=== PATIENT | female | born 1965 | race Caucasian/White ===

== ENCOUNTER 2017-09-22 08:02 | Outpatient (CLI) | payer MEDICARE ==
[~2017-09-22] VITALS: Ht 157.5 cm; Wt 83.2 kg
--- NOTE | ~2017-09-22 | HEMODYNAMI ---
PATIENT:BYRON JARAMILLO MEDICAL RECORD: [id number] : 63 LOCATION:DCATHY ADMISSION DATE: 09/22/17 Generatedon:09/22/201711:01 Patient name: BYRON JARAMILLO Patient #: [id number] S SN: : 1965 Date of study: 09/22/2017 Page: Of Hemodynamic Procedure Report Patient Data Patient Demographics Procedure consent was obtained First Name: BYRON Gender: Female Last Name: CLINT : 1965 Middle Initial: EDI Age: 51 year(s) Patient #: [id number] Race: Unknown Additional ID: [id number] Contact details Address: [facility] [place] State: [place] City: [place] Zip code: [address] Admission Admission Data Admission Date: 09/22/2017 Admission Time: 8:02 Lab Results Lab Result Date: 09/22/2017 Lab Result Time: 0:00 Biochemistry Name Units Result Min Max BUN mg/dl 10 --(-*--)-- 7 18 Creatinine mg/dl 0.7 --(*---)-- 0.6 1.3 CBC Name Units Result Min Max Hemoglobin g/dl 12.6 -*(----)-- 13.5 17.5 Procedure Procedure Types Cath Procedure Diagnostic Procedure [facility] w/Coronaries Miscellaneous Procedures Moderate Sedation up to 15 minutes Procedure Description Procedure Date Procedure Date: 09/22/2017 Procedure Start Time: 10:48 Procedure End Time: 11:00 Procedure Staff Name Function Vimal Rogers MD Performing Physician Colt Marino RT Monitor Faustina Stokes RT Scrub Andrew Saldana RN Nurse Procedure Data Cath Procedure Fluoroscopy Diagnostic fluoroscopy Total fluoroscopy Time: 2.7 time: 2.7 min min Diagnostic fluoroscopy Total fluoroscopy dose: 440 dose: 440 mGy mGy Contrast Material Contrast Material Type Amount (ml) Isovue 300 39 Entry Location Entry Primary Successful Side Size Upsize Upsize Entry Closure Rodríguez ccessful Closure Location (Fr) 1 (Fr) 2 (Fr) Remarks Device Remarks Radial Right 6 Fr Mechanical artery Short Compression Estimated blood loss: 10 ml Diagnostic catheters Device Type Used For End Catheter Placement DIAGNOSTIC [place] 110cm 5 Procedure Fr catheter ([id number]) Procedure Complications No complications Procedure Medications Medication Administration Route Dosage Oxygen NC 2 l/min Lidocaine 2% added to field 20 Heparin Flush Bag added to field 2 bags (1000units/500ml NS) 0.9% NaCl I.V. 100 ml/hr Radial Cocktail added to field 1 syringe (Verapomil 2mg/Nitro 400mcg/Heparin 1500units) Versed I.V. 1 mg Fentanyl I.V. 50 mcg Versed I.V. 1 mg Fentanyl I.V. 50 mcg 0.9% NaCl I.V. bolus 250 ml Versed I.V. 1 mg Fentanyl I.V. 50 mcg Hemodynamics Rest HGB: 12.6 (g/dl) Heart Rate: 70 (bpm) Pressure Samples Time Site Value (mmHg) Purpose Heart Use Rate(bpm) 10:53 AO 75/50(60) Snapshot 61 Snapshots Pre Cath Intra NCS Post Cath Vital Signs Time Heart Resp SPO2 etCO2 NIBP Rhythm Pain Sedation Rate (ipm) (%) (mmHg) (mmHg) Status Level (bpm) 10:28:08 70 22 94 33.1 82/60(71) NSR 0 (11) 10(A) , No pain 10:32:44 70 20 94 33.9 88/65(76) NSR 0 (11) 10(A) , No pain 10:37:21 70 18 94 32.4 95/62(79) NSR 0 (11) 10(A) , No pain 10:41:59 69 18 95 32.4 88/62(74) NSR 0 (11) 10(A) , No pain 10:46:36 65 18 94 33.1 90/56(72) NSR 0 (11) 10(A) , No pain 10:51:14 70 20 94 30.1 79/47(63) NSR 0 (11) 9(A) , No pain 10:55:51 63 18 95 36.2 86/49(69) NSR 0 (11) 9(A) , No pain 10:58:50 62 17 94 34.6 88/56(74) NSR 0 (11) 10(A) , No pain Medications Time Medication Route Dose Verified Delivered Reason Notes Effectiveness by by 10:26:40 Oxygen NC 2 l/min Vimal Buffie used for Ken Saldana RN procedure 10:26:47 Lidocaine 2% added 20ml Vimal Vimal for local to vial Ken Rogers MD anesthetic field 10:26:54 Heparin Flush added 2 bags Vimal Celis used for Bag to Ken Rogers MD procedure (1000units/500ml field NS) 10:27:04 0.9% NaCl I.V. 100 Vimal Buffie Per ml/hr Ken Saldana RN physician 10:46:00 Versed I.V. 1 mg Vimal Buffie for sedation Ken Saldana RN 10:46:06 Fentanyl I.V. 50 mcg Vimal Buffie for sedation Ken Saldana RN 10:49:14 Versed I.V. 1 mg Vimal Buffie for sedation Ken Saldana RN 10:49:17 Fentanyl I.V. 50 mcg Vimal Reganie for sedation Ken Saldana RN 10:50:06 Radial Cocktail added 1 Vimal Vimal for (Verapomil to syringe Ken Rogers MD vasodilation 2mg/Nitro field 400mcg/Heparin 1500units) 10:53:42 0.9% NaCl I.V. 250 ml Vimal Buffie Per bolus Ken Saldana RN physician 10:53:47 Versed I.V. 1 mg Vimal Buffie for sedation Ken Saldana RN 10:53:51 Fentanyl I.V. 50 mcg Vimal Reganie for sedation Ken Saldana RN Procedure Log Time Note 9:54:51 Time tracking: Regular hours 9:54:55 Plan of Care:Hemodynamics will remain stable., Cardiac rhythm will remain stable., Comfort level will be maintained., Respiratory function will remain adequate., Patient/ family verbilizes understanding of procedure., Procedure tolerated without complication., Recovers from procedure without complications.. 9:55:27 Colt SMITH(R) sent for patient. Start room use. 9:57:06 Lab Result : Creatinine 0.7 mg/dl 9:57:06 Lab Result : BUN 10 mg/dl 9:57:06 Lab Result : Hemoglobin 12.6 g/dl 10:12:56 Patient received from Pre/Post Procedure Room to CCL 1 Alert and oriented. Tansferred to table in Supine position. 10:12:58 Warm blankets applied, and filomena hugger turned on for patient comfort. 10:12:58 Correct patient and procedure confirmed by team. 10:13:02 Signed procedure consent form obtained from patient. 10:13:03 ECG and BP/O2 sat monitors applied to patient. 10:26:40 Oxygen 2 l/min NC was administered by Andrew Saldana RN; used for procedure; 10:26:47 Lidocaine 2% 20ml vial added to field was administered by Vimal Rogers MD; for local anesthetic; 10:26:54 Heparin Flush Bag (1000units/500ml NS) 2 bags added to field was administered by Vimal Rogers MD; used for procedure; 10:27:04 0.9% NaCl 100 ml/hr I.V. was administered by Andrew Saldana RN; Per physician; 10:27:07 Vital chart was started 10:28:35 Baseline sample Acquired. 10:28:39 Rhythm: sinus rhythm 10:28:49 Full Disclosure recording started 10:29:10 H&P Date Dictated: 09/22/2017 New H&P dictated by physician.. 10:29:11 Pre-procedure instructions explained to patient. 10:29:12 Pre-op teaching completed and patient verbalized understanding. 10:29:16 Family in patients room. 10:29:17 Patient NPO since Midnight. 10:29:21 Is the patient allergic to Iodine/contrast media? No. 10:29:25 Is patient on blood thinner?Yes 10:29:30 Patient diabetic? No. 10:31:02 Patient not . Patient has had tubal. 10:31:06 Previous problem with sedation/anesthesia? No ? 10:31:07 Snore? Yes 10:31:09 Sleep apnea? No 10:31:10 Deviated septum? No 10:31:11 Opens mouth fully? Yes 10:31:11 Sticks out tongue? Yes 10:31:13 Airway obstruction? No ? 10:31:19 Dentures? Yes OUT 10:31:22 Pre procedure: right dorsailis pedis pulse 1+ Palpable, but thready & weak; easily obliterated 10:31:25 Modified Jose's test Ulnar < 7 seconds 10:31:26 Patient pain scale 0/10 ?. 10:31:52 IV patent on arrival in left forearm with 0.9% NaCl at [facility]. 10:31:55 Lab results completed and on chart. 10:32:07 Right Radial & Right Groin area was prepped with chlora-prep and draped in sterile fashion 10:32:20 Alarms reviewed by R. N. 10:32:21 Sharps counted by scrub and verified by R.N. 10:34:48 Zero performed for pressure channel P1 10:35:26 Use device set Radial Dx or PCI 10:35:29 Tegaderm 4 x 4 (1626W) opened to sterile field. 10:35:30 ACIST Hand Control (51691) opened to sterile field. 10:35:30 ACIST Manifold (90674) opened to sterile field. 10:35:32 ACIST Syringe (21973) opened to sterile field. 10:35:32 Medline Cath Pack ([id number]) opened to sterile field. 10:35:33 Bag Decanter (2002S) opened to sterile field. 10:35:33 SHEATH 6FR Slender ([id number]) opened to sterile field. 10:35:34 DIAGNOSTIC WIRE .035 260cm J wire (571612) opened to sterile field. 10:35:35 MBrace Wrist Support ([id number]) opened to sterile field. 10:45:31 --------ALL STOP TIME OUT------ 10:45:32 Final Timeout: patient, procedure, and site verified with staff and physician. All members of the team are in agreement. 10:45:38 Right Radial & Right Groin site verified by team. 10:45:41 Physical assessment completed. ASA score P 2 - A patient with mild systemic disease as per Vimal Rogers MD. 10:45:44 Sedation plan: IV Moderate Sedation Medication:Versed, Fentanyl 10:46:00 Versed 1 mg I.V. was administered by Andrew Saldana RN; for sedation; 10:46:06 Fentanyl 50 mcg I.V. was administered by Andrew Saldana RN; for sedation; 10:48:46 Procedure started. 10:48:50 Local anesthetic to right radial artery with Lidocaine 2% by Vimal Rogers MD.INITIAL ACCESS ONLY 10:49:11 A 6 Fr Short sheath was inserted into the Right Radial artery 10:49:14 Versed 1 mg I.V. was administered by Andrew Saldana RN; for sedation; 10:49:17 Fentanyl 50 mcg I.V. was administered by Andrew Saldana RN; for sedation; 10:50:06 Radial Cocktail (Verapomil 2mg/Nitro 400mcg/Heparin 1500units) 1 syringe added to field was administered by Vimal Rogers MD; for vasodilation; 10:50:17 A DIAGNOSTIC [place] 110cm 5 Fr catheter ([id number]) was advanced over the wire and used for Procedure. 10:52:51 LCA angiography performed. 10:53:42 0.9% NaCl 250 ml I.V. bolus was administered by Andrew Saldana RN; Per physician; 10:53:47 Versed 1 mg I.V. was administered by Andrew Saldana RN; for sedation; 10:53:51 Fentanyl 50 mcg I.V. was administered by Andrew Saldana RN; for sedation; 10:53:55 RCA angiography performed. 10:54:03 TR BAND Standard ([id number]) opened to sterile field. 10:54:06 Catheter removed. 10:54:28 Sheath removed intact; hemostasis achieved with Mechanical Compression to the Right Radial artery. 10:54:31 Procedure ended.(Physican Out) 10:54:45 Fluoroscopy time 02.70 minutes. 10:54:47 Fluoroscopy dose: 440 mGy 10:54:47 Flurop Dose total: 440 10:54:58 Contrast amount:Isovue 300 39ml. 10:54:59 Sharps counted by scrub and verified by R.N. 10:55:02 TR band inflated with 12cc of air. 10:55:03 Insertion/operative site no bleeding no hematoma. 10:55:26 Post Procedure Pulses reassessed and unchanged 10:55:28 Post-procedure physical assessment completed. ASA score P 2 - A patient with mild systemic disease as per Vimal Rogers MD. 10:55:31 Post procedure rhythm: unchanged. 10:55:34 Estimated blood loss: 10 ml 10:55:36 Post procedure instruction explained to patient.Patient verbalizes understanding. 10:55:36 Patient needs reinforcement of post procedure teaching. 10:55:47 Procedure Complication : No complications 10:56:46 Procedure and supply charges have been captured, reviewed, submitted and are correct. 11:00:44 Vital chart was stopped 11:00:44 See physician's report for complete and final results. 11:00:48 Report given to Pre/Post Procedure Room. 11:00:50 Patient transfered to Pre/Post Procedure Room with Stretcher. 11:00:53 Procedure ended. 11:00:53 Full Disclosure recording stopped 11:00:56 End room use (Document Last) Device Usage Item Name Manufacture Quantity Catalog Hospital Part Current Minima l Lot# / Number Charge Number Stock Stock Serial# Code Tegaderm 4 x 3M 1 1626W [id number] 614237 189501 5 4 (1626W) ACIST Hand Acist 1 74717 214579 941276 874912 5 Control Medical (17018) Systems Inc ACIST Acist 1 07474 204253 553921 760793 5 Manifold Medical (72493) Systems Inc ACIST Acist 1 35722 072381 996256 658070 20 Syringe Medical (14158) Systems Inc Medline Cath Cardinal 1 [id number] 990971 99796 629835 5 Mediafly [facility] ([id number]) Bag Decanter Microtek 1 2001S 060045 45402 000105 5 (2001S) Medical Inc. SHEATH 6FR Terumo 1 [id number] 683336 232923 222877 40 Slender ([id number]) DIAGNOSTIC [facility] 1 383799 129522 461751 063597 30 WIRE .035 260cm J wire (428541) MBrace Wrist Advanced 1 140-0250-00 540246 38814 471515 5 Support Vascular ([id number]) Dynamics DIAGNOSTIC Terumo 1 40-3243 408691 399358 207467 5 [place] 110cm 5 Fr catheter (522110) TR BAND Terumo 1 [id number] 368296 445706 694345 40 Standard ([id number]) Signature Audit Biggs Stage Time Signature Unsigned Intra-Procedure 09/22/2017 Colt Marino 11:01:20 AM RT(R) Signatures Monitor : Colt Marino RT Signature : Date : Time : [facility] [address] [place] [address]
--- NOTE | ~2017-09-22 | HP ---
PATIENT: BYRON WEBER MEDICAL RECORD: [id number] ACCOUNT: [id number] LOCATION:OLY : 63 ADMISSION DATE: 09/22/17 HISTORY AND PHYSICAL EXAMINATION DIAGNOSES: 1. Angina. 2. Abnormal nuclear stress test, reversible ischemia. 3. Hypertension. HISTORY OF PRESENT ILLNESS: Mrs. Weber presents with increasing episodes of chest pain compatible with angina. Nuclear stress test has risk stratification revealing significant reversible ischemia, now brought for cardiac catheterization. REVIEW OF SYSTEMS: The patient reports easy bruising but reports no swollen glands. The patient reports no fever, no night sweats, no significant weight gain, no significant weight loss. No significant exercise tolerance. The patient reports no dry eyes, no irritation, no vision change. Patient reports no difficulty hearing and no ear pain. Patient reports no frequent nose bleeds or nose and sinus problems. Patient reports on arm pain on exertion. No shortness of breath while lying down. No history of heart murmur. Patient reports no cough, no wheezing or coughing up blood. Patient reports no abdominal pain, no vomiting. Normal appetite. No diarrhea and not vomiting blood. No nausea and no constipation. Patient reports no incontinence. No difficulty urinating. No hematuria. No increased frequency. Patient reports no muscle aches. No weakness, no arthralgias, no back pain. No swelling of the extremities. Patient reports no abnormal mole, no jaundice, no rashes. Reports no loss of consciousness. No weakness and no numbness. No seizures, dizziness, or headaches. The patient reports no depression, no sleep disturbance, feeling safe in a relationship and no alcohol abuse. Patient reports on fatigue. Reports no runny nose or sinus pressure. No itching, no hives, and no frequent sneezing. PHYSICAL EXAMINATION: GENERAL APPEARANCE: Well-nourished, well-developed, appears stated age. Level of distress, comfortable. PSYCHIATRIC: Mental status, alert, normal affect. Orientation, oriented to time, place and person. EYES: Lids and conjunctiva, noninjected. No discharge, no pallor. ENT: Lips, teeth, gums, normal dentition. Oropharynx, no cyanosis, no pallor. NECK: Carotid arteries, bilateral normal upstroke, no bruits, no thrills. JUGULAR VEINS: No jugular venous pressure or distention. CERVICAL LYMPH NODES: Nontender, nonenlarged. THYROID: Not enlarged. Nontender. No nodules. LUNGS: Respiratory effort, unlabored. CHEST: Normal curvature. No thoracic deformity. No chest wall tenderness. Percussion, resonant. Auscultation, clear. No wheezes, no rales, no rhonchi. CARDIOVASCULAR: Precordial exam, nondisplaced. No heaves or pericardial thrills. Rate and rhythm, regular. Heart sounds, normal S1, normal S2. No S3, no gallop, no rub. Systolic murmur, not heard. Diastolic murmur, not heard. EXTREMITIES: No cyanosis, no edema. Peripheral pulses, full and equal in all extremities, except as noted. No bruits appreciated. ABDOMEN: Soft, nondistended. Normal aorta. No bruit. Nontender. No masses. Liver, nontender, no hepatomegaly. Spleen, nontender, no splenomegaly. HISTORY AND PHYSICAL [id number] CLINT,BYRON VÍCTOR MUSCULOSKELETAL: No joint tenderness. No joint swelling. No erythema. NEUROLOGICAL: Normal gait, normal strength, normal tone. SKIN: Warm and dry. OVERALL IMPRESSION: Anginal symptomatology with abnormal nuclear stress test, most likely she has hemodynamically significant coronary artery disease. We will proceed with coronary angiography. Further care depends upon findings of the angiography. TRANSINT:[id number] Voice Confirmation ID: [id number] DOCUMENT ID: [id number] JOSE LYNN MD at 1025 CC: [id number] DICTATION DATE: 09/22/1714 [facility] SORTER: 09/22/17 0937 [facility] CLI 09/22/17 [place] [id number] [place] [id number]
--- NOTE | ~2017-09-22 | OP ---
PATIENT NAME: BYRON JARAMILLO MEDICAL RECORD: [id number] :63 LOCATION:D.CAT ADMISSION DATE: SURGEON: JOSE LYNN MD DATE OF OPERATION: 09/22/2017 PROCEDURES: 1. Left heart catheterization. 2. Selective coronary angiography. 3. Left ventriculogram. INDICATION: Chest pain compatible with angina and abnormal nuclear stress test. PROCEDURE IN DETAIL: After informed consent was obtained and after detailed explanation of risks, benefits as well as alternative therapies, the patient elected to proceed with angiogram and heart catheterization. The right radial area was prepped and draped in normal sterile fashion. The right radial artery was cannulated via modified Seldinger technique with placement of 5-Grenadian sheath. All catheters exchanged through this sheath. FINDINGS: The left ventriculogram was performed in standard 30-degree [place] view, reveals good cardiac wall motion throughout all segments. Overall ejection fraction estimated at 60%. SELECTIVE CORONARY ANGIOGRAPHY: Left main, left anterior descending, left circumflex, and right coronary artery are all smooth-walled vessels with no angiographic evidence of coronary artery disease. OVERALL IMPRESSION: 1. No angiographic evidence of coronary artery disease. 2. Normal left heart pressures. 3. Normal left ventricular systolic function. Chest pain is noncardiac in etiology. No further cardiac workup needs to be ascertained. TRANSINT:[id number] Voice Confirmation ID: [id number] DOCUMENT ID: [id number] JOSE LYNN MD at 1025 CC: [id number] DICTATION DATE: 09/22/17 1058 HANDLE SEWER: 09/22/17 1220 [facility] CLI 09/22/17 [place] [address]
[2017-09-22] MEDS ORDERED: CELEXA20 MG PO (09:07)
[2017-09-22] MEDS ORDERED: ULTRAM50 MG PO (09:07)
[2017-09-22] MEDS ORDERED: HYDROCHLOROTHIA25 MG PO (09:08)
[2017-09-22] MEDS ORDERED: AMBIEN10 MG PO (09:08)
[2017-09-22] MEDS ORDERED: CYCLOBENZAPRINE10 MG PO (09:09)
[2017-09-22 09:42] LABS: BASOPHILS 0.2 % (0-2); EOSINOPHILS 0.9 % (0-7); HEMATOCRIT 38.9 % (36.0-48.0); HEMOGLOBIN 12.6 g/dL (12-16); IMMATURE GRANULOCYTES 0.2 % (0-5); LYMPHOCYTES 24.9 % (15-50); MCH 28.4 pg (26.0-34.0); MCHC 32.4 g/dL (31.0-37.0); MCV 87.6 fL (80.0-100.0); MONOCYTES 9.6 % (2-11); NEUTROPHILS 64.2 % (40-80); PLATELET COUNT 211 10x3/uL (130-400); RBC 4.44 10x6/uL (4.00-5.40); RDW 14.1 % (11.5-14.5); WBC 4.3 10x3/uL (4.8-10.8)
[2017-09-22 09:44] VITALS: BP 107/62; Ht 157.5 cm; Wt 83.2 kg
[2017-09-22 09:49] LABS: CALC OSMOLALITY 274 mosm/kg (275-300); CALCIUM 9.1 mg/dL (8.5-10.1); CARBON DIOXIDE 28.4 mmol/L (21.0-32.0); CHLORIDE - SERUM 100 mmol/L (98-107); CREATININE - SERUM 0.7 mg/dL (0.6-1.3); GLUCOSE 94 mg/dL (74-106); POTASSIUM - SERUM 3.3 mmol/L (3.5-5.1); SODIUM 138 mmol/L (136-145); UREA NITROGEN 10 mg/dL (7-18); eGFR NON AFRICAN AMERICAN > 90 mL/min (90-120)
== END 2017-09-22 13:00 | disposition home or self-care (01) ==
LOC: D.CATH 08:02
PROVIDERS: Internal Medicine Interventional Cardiology
DX: I20.9 Angina pectoris, unspecified (principal); R94.30 Abnormal result of cardiovascular function study, unspecified; Z01.812 Encounter for preprocedural laboratory examination